=== PATIENT | female | born 1995 | race Two or more races ===

== ENCOUNTER 2017-05-26 20:39 | Emergency (ER) | payer SELFPAY ==
[~2017-05-26] VITALS: Ht 149.9 cm; Wt 48.1 kg
[2017-05-26 20:59] VITALS: BP 118/73
[2017-05-26] MEDS ORDERED: IBUPROFEN 400 MG TABLET. PO ONE (21:30)
[2017-05-26] MEDS ORDERED: IBUP-1060 PO (22:05)
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
== END 2017-05-26 22:15 | disposition home or self-care (01) ==
LOC: ER 20:39
DX: M25.511 Pain in right shoulder (principal); V43.52XA Car driver injured in collision with other type car in traffic accident, initial encounter; W22.10XA Striking against or struck by unspecified automobile airbag, initial encounter; Y93.I9 Activity, other involving external motion; Y92.410 Unspecified street and highway as the place of occurrence of the external cause; Y99.8 Other external cause status
CPT/HCPCS: 73060; 99284